=== PATIENT | female | born 1950 | race Caucasian/White ===

== ENCOUNTER 2024-10-15 10:19 | Emergency (ER) | payer MEDICARE, OTHER ==
[2024-10-15] MEDS: Ondansetron 4 MG Tab.DIS PO ONE (10:41)
[2024-10-15] MEDS: Acetaminophen/oxyCODONE 325-5 MG Tab PO ONE (10:42)
== END 2024-10-15 11:08 | disposition home or self-care (01) ==
LOC: JD.ED 10:19
DX: M54.16 Radiculopathy, lumbar region (principal); Z79.899 Other long term (current) drug therapy
CPT/HCPCS: 99283; A9270; J7512